=== PATIENT | male | born 2000 ===

== ENCOUNTER 2022-08-05 08:42 | Emergency (ER) | payer SELFPAY ==
[~2022-08-05] VITALS: Ht 170.2 cm; Wt 63.5 kg
[2022-08-05 08:47] VITALS: BP 132/77
[2022-08-05 09:01] VITALS: BP 115/74
[2022-08-05 09:47] VITALS: BP 115/74
[2022-08-05 09:55] LABS: ALBUMIN 5.2 g/dL (3.2-5.0); ALKALINE PHOSPHATASE 50 u/l (38-126); ANION GAP 16 (6-22 (CALC)); BILIRUBIN, TOTAL 1.2 mg/dL (0.0-1.4); BUN 18 mg/dL (9-20); BUN/CREATININE RATIO 31 (12-20 (CALC)); CARBON DIOXIDE 22 mmol/l (22-30); CHLORIDE 105 mmol/l (95-108); CREATININE 0.6 mg/dL (0.7-1.3); GFR FOR AFR.AMER. > 60 ML/MIN (>=60 (CALC)); GFR OTHER RACES > 60 ML/MIN (>=60 (CALC)); POTASSIUM 4.4 mmol/l (3.5-5.1); SGOT/AST 43 u/l (17-59); SODIUM 139 mmol/l (137-146)
== END 2022-08-05 09:48 | disposition left against medical advice (07) | DRG 392 ==
LOC: ED 08:42
PROVIDERS: Family Medicine
DX: R11.2 Nausea with vomiting, unspecified (principal); R19.7 Diarrhea, unspecified; Z53.29 Procedure and treatment not carried out because of patient's decision for other reasons